=== PATIENT | female | born 1955 | race Caucasian/White ===

== ENCOUNTER 2016-10-09 23:09 | Emergency (ER) | payer OTHER | END 2016-10-10 01:34 | disposition home or self-care (01) | LOC: ER 23:09 | DX: J20.9 Acute bronchitis, unspecified (principal); F32.9 Major depressive disorder, single episode, unspecified; F17.210 Nicotine dependence, cigarettes, uncomplicated; Z90.49 Acquired absence of other specified parts of digestive tract; Z90.710 Acquired absence of both cervix and uterus | CPT/HCPCS: 36415; 87502 ==

== ENCOUNTER 2016-10-17 17:46 | Emergency (ER) | payer OTHER | END 2016-10-17 18:59 | disposition home or self-care (01) | LOC: ER 17:46 | DX: M25.552 Pain in left hip (principal); F32.9 Major depressive disorder, single episode, unspecified; F17.210 Nicotine dependence, cigarettes, uncomplicated; Z90.49 Acquired absence of other specified parts of digestive tract; Z90.710 Acquired absence of both cervix and uterus; Z79.899 Other long term (current) drug therapy | CPT/HCPCS: 73502-LT; 96372; J1885 ==